=== PATIENT | male | born 1970 | race Caucasian/White ===

== ENCOUNTER 2020-02-12 17:18 | Emergency (ER) | payer SELFPAY ==
[~2020-02-12] VITALS: Ht 175.3 cm; Wt 83.9 kg
[2020-02-12 17:22] VITALS: BP_SYST 159
[2020-02-12 17:41] VITALS: BP_SYST 159
== END 2020-02-12 17:41 ==
LOC: SED 17:18
DX: Z02.89 Encounter for other administrative examinations (principal); I10 Essential (primary) hypertension
CPT/HCPCS: 99283